=== PATIENT | male | born 1960 | race Caucasian/White ===

== ENCOUNTER 2017-02-13 13:39 | Emergency (ER) | payer OTHER ==
[~2017-02-13] VITALS: Ht 175.3 cm; Wt 80.3 kg
[~2017-02-13 13:39] MED LIST: MIRT15TA3 PO; OLAN10TA3 PO
--- NOTE | 2017-02-13 14:25 | NUR ---
BB SELF C/O RIGHT ELBOW BURSITIS. NAD NOTED. PT AAO X4, AMB WITH STEADY GAIT. RR EVEN AND UNLABORED. VSS. DR YOO AT BEDSIDE FOR EVAL.
[2017-02-13 15:52] VITALS: BP 117/97
== END 2017-02-13 15:53 | disposition home or self-care (01) ==
LOC: ER 13:42
PROC: 0M933ZZ Drainage of Right Elbow Bursa and Ligament, Percutaneous Approach (ICD-10-PCS; principal; 2017-02-13)
DX: M70.31 Other bursitis of elbow, right elbow (principal); M75.21 Bicipital tendinitis, right shoulder; G89.29 Other chronic pain; M54.9 Dorsalgia, unspecified
CPT/HCPCS: 20605; 99284; A4606; A6402; J3490; Z7610

== ENCOUNTER 2017-12-15 21:04 | Emergency (ER) | payer OTHER ==
[~2017-12-15] VITALS: Ht 175.3 cm; Wt 78.0 kg
[2017-12-15 21:09] VITALS: BP 116/86
== END 2017-12-15 22:40 | disposition home or self-care (01) ==
LOC: ER 21:06
DX: S00.81XA Abrasion of other part of head, initial encounter (principal); S06.0X0A Concussion without loss of consciousness, initial encounter; G89.29 Other chronic pain; G47.9 Sleep disorder, unspecified; Z88.5 Allergy status to narcotic agent; Z60.2 Problems related to living alone; W22.8XXA Striking against or struck by other objects, initial encounter; Y93.15 Activity, underwater diving and snorkeling; Y92.832 Beach as the place of occurrence of the external cause; Y99.8 Other external cause status
CPT/HCPCS: A4606; Z7610

== ENCOUNTER 2020-01-27 20:08 | Emergency (ER) | payer OTHER ==
[~2020-01-27] VITALS: Ht 175.3 cm; Wt 79.4 kg
[2020-01-27 20:10] VITALS: BP 132/76
[2020-01-27] MEDS ORDERED: HYDROCODONE/APAP 10/325MG TABLET ONE (20:59)
[2020-01-27] MEDS ORDERED: HYDROCODONE/APAP 10/325MG TABLET PO ONE (21:00)
== END 2020-01-27 22:04 | disposition home or self-care (01) ==
LOC: ER 20:08
DX: M25.561 Pain in right knee (principal); G89.29 Other chronic pain; M54.9 Dorsalgia, unspecified; Z88.5 Allergy status to narcotic agent; Z79.899 Other long term (current) drug therapy; Z60.2 Problems related to living alone

== ENCOUNTER 2022-08-14 21:25 | Emergency (ER) | payer OTHER ==
[~2022-08-14] VITALS: Ht 175.3 cm; Wt 77.1 kg
--- NOTE | 2022-08-14 22:25 | NUR ---
covid swab taken and sent to lab
--- NOTE | 2022-08-14 22:27 | NUR ---
PT IN BED 7 TOLORATING ROOM AIR, A/O X4. C/O THROAT PAIN 8/10 WHEN DRINKING AND EATING. BED IN HIGH FOWLERS SIDE RAILS UP CONNECTED TO BED SIDE MONITOR.
[2022-08-14] MEDS ORDERED: PANTOPRAZOLE 40 MG VIAL ONE (22:30)
[2022-08-14] MEDS ORDERED: PANTOPRAZOLE 40 MG VIAL IV ONE (22:30)
[2022-08-14 22:42] LABS: BASOPHILS % (AUTO) 0.3 % (0.0-2.0); EOSINOPHILS % (AUTO) 0.9 % (0.0-6.0); HEMATOCRIT 47 % (39-51); HEMOGLOBIN 15.4 g/dL (13.5-17.5); LYMPHOCYTES # (AUTO) 1.7 K/uL (0.8-4.8); LYMPHOCYTES % (AUTO) 16.1 % (20.0-44.0); MEAN CORPUSCULAR HGB CONC 33 g/dl (31.0-36.0); MEAN CORPUSCULAR VOLUME 91 fL (80-96); NEUTROPHILS # (AUTO) 7.6 K/uL (1.8-8.9); NEUTROPHILS % (AUTO) 72.7 % (43.0-81.0); PLATELET COUNT (AUTO) 210 K/uL (150-450); RED BLOOD CELL COUNT(AUTO) 5.17 MIL/uL (4.5-6.0); WHITE BLOOD COUNT (AUTO) 10.4 K/uL (4.3-11.0)
[2022-08-14] MEDS ORDERED: IOHEXOL-300 100 ML VIAL IV ONE (22:51)
[2022-08-14] MEDS ORDERED: CT SWABBABLE VALVE TRANS SET 1 EA INFUS.SET MC ONE (22:51)
[2022-08-14] MEDS ORDERED: IV NS 0.9% 250 ML IV ONE (22:51)
--- NOTE | 2022-08-14 22:57 | NUR ---
PT TAKEN TO CT VIA [facility]
[2022-08-14 23:21] LABS: CALCIUM, SERUM 9.9 mg/dL (8.5-10.1); CREATININE 1.3 mg/dL (0.6-1.3)
[2022-08-14 23:39] LABS: BILIRUBIN,DIRECT 0.1 mg/dL (0.0-0.2); BILIRUBIN,TOTAL 0.4 mg/dL (0.2-1.0); TOTAL PROTEIN, SERUM 7.6 g/dL (6.4-8.2)
--- NOTE | 2022-08-15 00:28 | NUR ---
DR. TOBIAS HAD A PEER TO PEER WITH DR. DE LEON FROM [facility]. PT IS ACCEPTED TO GO TO [facility]. AWAITING FOR TRANSFER INFORMATION
--- NOTE | 2022-08-15 01:48 | NUR ---
PT GOING TO [facility]. CALL [phone] FOR REPORT.
--- NOTE | 2022-08-15 02:00 | NUR ---
[facility]SPORT ETA 0300 TO [facility]
[2022-08-15 02:03] VITALS: BP 126/57
--- NOTE | 2022-08-15 02:05 | NUR ---
REPORT GIVEN TO LETTY BULLARDJOSH WADSWORTH RN FOR [facility]
--- NOTE | 2022-08-15 03:04 | NUR ---
[facility] TO TRANSPORT PT TO [facility] ER. VSS.
== END 2022-08-15 03:31 | disposition short-term general hospital (02) ==
LOC: ER 21:34
DX: K92.2 Gastrointestinal hemorrhage, unspecified (principal); R10.13 Epigastric pain; R11.10 Vomiting, unspecified; M54.50 Low back pain, unspecified; G89.29 Other chronic pain; Z79.899 Other long term (current) drug therapy; Z20.822 Contact with and (suspected) exposure to COVID-19; Z88.5 Allergy status to narcotic agent
CPT/HCPCS: 99291; 74177; 96374; 71045; 87426; 85025; 80048; 83690; 80076; 36415; 85730; J7050; C9113; Q9967; C9803